=== PATIENT | male | born 1965 | race Caucasian/White ===

== ENCOUNTER 2023-02-16 04:18 | Emergency (ER) | payer OTHER ==
[~2023-02-16] VITALS: Ht 167.6 cm; Wt 89.4 kg
[2023-02-16 04:52] LABS: BASOPHILS # (AUTO) 0.05 K/uL (0.00-0.20); BASOPHILS % (AUTO) 0.5 % (0.0-5.0); EOSINOPHILS # (AUTO) 0.26 K/uL (0.00-0.70); EOSINOPHILS % (AUTO) 2.6 % (0.0-8.0); HEMATOCRIT 33.9 % (42-54); IMMATURE GRANULOCYTE ABSOLUTE 0.03 K/uL (0-1); LYMPHOCYTES # (AUTO) 1.8 K/uL (1.0-4.8); LYMPHOCYTES % (AUTO) 18.5 % (21.0-51.0); MEAN CORPUSCULAR HEMOGLOBIN 29.2 pg (27.0-33.0); MEAN CORPUSCULAR VOLUME 88.5 fL (79-99); MONOCYTES # (AUTO) 1.1 K/uL (0.1-1.0); NEUTROPHILS # (AUTO) 6.6 K/uL (1.8-7.7); NEUTROPHILS % (AUTO) 67.1 % (40.0-77.0); PLATELET COUNT (AUTO) 176 K/uL (130-400); RED BLOOD CELL COUNT(AUTO) 3.83 MIL/uL (4.50-6.20); RED CELL DISTRIBUTION WIDTH 13.7 % (11.0-15.5); WHITE BLOOD COUNT (AUTO) 9.9 K/uL (4.8-10.8)
[2023-02-16] MEDS ORDERED: SOLU-MEDROL 125MG VIAL IVP ONE (05:00)
[2023-02-16] MEDS ORDERED: IPRATROPIUM/ALBUTEROL SULFATE 3 ML SOLUTION IH ONE (05:00)
[2023-02-16 05:03] LABS: CREATININE 0.7 mg/dL (0.5-1.5); POTASSIUM 4.5 mmol/L (3.5-5.1)
[2023-02-16 05:06] LABS: ALBUMIN 2.8 g/dL (3.5-5.0); BILIRUBIN,TOTAL 0.4 mg/dL (0.2-1.0); MAGNESIUM 1.8 mg/dL (1.80-2.40); SARS-CoV-2, RNA, NAAT NEGATIVE SARS CoV-2 (NEGATIVE); TOTAL PROTEIN, SERUM 6.1 g/dL (6.0-8.3)
[2023-02-16 05:10] LABS: INFLUENZA TYPE A Negative For Type A (NEGATIVE); INFLUENZA TYPE B Negative For Type B (NEGATIVE)
[2023-02-16 05:16] VITALS: PULSE 100; RESP 24
[2023-02-16 05:30] VITALS: PULSE 101; RESP 20; O2SAT 97
[2023-02-16] MEDS ORDERED: ALBUTEROL 0.083% 2.5 MG/3 ML INH IH ONE (05:30)
[2023-02-16] MEDS ORDERED: PRED20TA3 PO (06:56)
[2023-02-16] MEDS ORDERED: ALBU1.252 IH (06:56)
[2023-02-16] MEDS ORDERED: ALBUHFA IH (06:56)
[2023-02-16 09:48] VITALS: BP 112/69; PULSE 97; RESP 19; O2SAT 96
== END 2023-02-16 09:48 | disposition home or self-care (01) ==
LOC: EDH 04:18
DX: J44.1 Chronic obstructive pulmonary disease with (acute) exacerbation (principal); I10 Essential (primary) hypertension; E11.9 Type 2 diabetes mellitus without complications; E78.00 Pure hypercholesterolemia, unspecified; F10.20 Alcohol dependence, uncomplicated; Z20.822 Contact with and (suspected) exposure to COVID-19; Z90.89 Acquired absence of other organs
CPT/HCPCS: 99285; 96374; 71045; 87635; 94760; 83735; 84484; 80053; 85025; 87804 ×2; 36415; 93005; 94640; 94644; C9803; J2930